=== PATIENT | female | born 1945 | race Caucasian/White ===

== ENCOUNTER 2025-03-03 18:49 | Emergency (ER) | payer OTHER ==
[2025-03-03 18:57] VITALS: TEMP 97.8; BMI 29.5
[2025-03-03 21:34] LABS: EPI CELLS 4 /uL (0-25.1); HYALINE CASTS 1 /uL (0-3.1); URINE APPEARANCE CLEAR; URINE BACTERIA 10 /uL (0-1359); URINE BILIRUBIN NEGATIVE (NEGATIVE); URINE COLOR YELLOW; URINE GLUCOSE (UA) NEGATIVE (NEGATIVE); URINE KETONE TRACE (NEGATIVE); URINE LEUK ESTERASE 1+ (NEGATIVE); URINE NITRITE NEGATIVE (NEGATIVE); URINE PROTEIN NEGATIVE (NEGATIVE); URINE RBC 7 /uL (0-23.9); URINE UROBILINOGEN 1.0 mg/dL (0.2-1.0); URINE WBC 8 /uL (0-25.8)
[2025-03-03 21:36] LABS: ABSOLUTE IMMATURE GRANULOCYTES 0.01 x10^3/uL (0.0-0.031); BASOPHILS # 0.02 x10^3/uL (0.01-0.08); EOSINOPHIL % 2.8 % (0.7-5.8); EOSINOPHILS # 0.14 x10^3/uL (0.04-0.36); MCHC 31.2 g/dl (32.2-35.5); MEAN CELL VOLUME 93.1 fl (79.4-94.8); MEAN PLT VOLUME 10.9 fl (9.4-12.3); MONOCYTE # 0.41 x10^3/uL (0.24-0.86); MONOCYTE % 8.1 % (4.7-12.5); RDW 13.9 % (12.5-17.0)
[2025-03-03 21:54] LABS: CO2 27.0 mmol/L (21-32); GLUCOSE,RANDOM 119.0 mg/dL (74-106)
[2025-03-03 21:58] LABS: CREATININE 0.7 mg/dL (0.55-1.3); SGOT/AST 22.0 U/L (15-37); SGPT/ALT 12.0 U/L (13-61)
[2025-03-03] MEDS: SODIUM CHLORIDE 1,000 ML IV STA (21:58)
[2025-03-03 21:59] LABS: TOT PROT 7.1 g/dl (6.4-8.2)
[2025-03-03 22:01] LABS: ALK PHOS 89.0 U/L (45-117)
[2025-03-03 22:02] LABS: N-TERMINAL BNP 410.4 pg/ml (5-450)
[2025-03-03] MEDS: CEFTRIAXONE 1 GM in DEXTROSE 5%-WATER - 100 ML IVPB ONE (23:45)
[2025-03-03] MEDS ORDERED: CEFTRIAXONE 1 GM/50 ML BAG ONE (23:46)
[2025-03-04 01:10] VITALS: BP 159/58; PULSE 58; RESP 17
== END 2025-03-04 01:10 | disposition home or self-care (01) ==
LOC: JER 18:49
PROC: 3E03329 Introduction of Other Anti-infective into Peripheral Vein, Percutaneous Approach (ICD-10-PCS; principal; 2025-03-03)
PROC: 3E0337Z Introduction of Electrolytic and Water Balance Substance into Peripheral Vein, Percutaneous Approach (ICD-10-PCS; 2025-03-03)
DX: N39.0 Urinary tract infection, site not specified (principal); R53.1 Weakness; R26.2 Difficulty in walking, not elsewhere classified; R06.02 Shortness of breath; M79.672 Pain in left foot; M25.572 Pain in left ankle and joints of left foot; M79.89 Other specified soft tissue disorders; R35.0 Frequency of micturition; R68.2 Dry mouth, unspecified
CPT/HCPCS: 70450-TC; 73610-TC-LT-FY; 73630-TC-LT; 80053; 81003; 83880; 84484; 85025; 87086; 93005; 93010; 93971-TC; 99285-25